=== PATIENT | female | born 1985 ===

== ENCOUNTER 2017-01-02 14:58 | Emergency (ER) | payer MEDICAID, OTHER ==
[2017-01-02 15:06] VITALS: BP 120/73; PULSE 82; RESP 18; TEMP 98.3; O2SAT 100
--- NOTE | 2017-01-02 15:31 | ED PDOC ---
HPI: General Adult Time Seen by Provider: 01/02/17 15:14 Chief Complaint (Nursing): Chest Pain Chief Complaint (Provider): chest pain History Per: Patient History/Exam Limitations: no limitations Additional Complaint(s): 31yo female comes to the ED complaining of chest pain that started yesterday. States pain was sharp, her chest felt "lumpy" on the left. She had shortness of breath earlier today. States she occasionally gets headaches. No cough, fever, leg swelling, dizziness, diarrhea. She reports stress. Denies palpitations. States her father has a heart condition. Denies tobacco use. States she gets a rash around her lips when she is given morphine PMD: none Past Medical History Reviewed: Historical Data, Nursing Documentation, Vital Signs Vital Signs: Last Vital Signs Temp 98.3 F 01/02/17 15:02 Pulse 82 01/02/17 15:02 Resp 18 01/02/17 15:02 BP 120/73 01/02/17 15:02 Pulse Ox 100 01/02/17 16:08 - Medical History PMH: Anxiety, Asthma, Hypercholesterolemia, Migraine - Surgical History Surgical History: No Surg Hx - Family History Family History: States: Other (Father has a "heart condition") - Social History Current smoker - smoking cessation education provided: No - Immunization History Hx Tetanus Toxoid Vaccination: No Hx Influenza Vaccination: No Hx Pneumococcal Vaccination: No - Home Medications Home Medications: Ambulatory Orders Medication Instructions Recorded Fish Oil PO DAILY 08/16/16 Sulfamethoxazole/Trimethoprim 1 tab PO BID #14 tab 08/16/16 [Bactrim DS 800 mg-160 mg] Ventolin HFA 90 mcg/actuation (8 g) PRN PRN 08/16/16 - Allergies Allergies/Adverse Reactions: Allergies Allergy/AdvReac Type Severity Reaction Status Date / Time morphine Allergy Verified 08/16/16 13:42 Review of Systems ROS Statement: Except As Marked, All Systems Reviewed And Found Negative Constitutional: Negative for: Fever Cardiovascular: Positive for: Chest Pain Respiratory: Positive for: Shortness of Breath. Negative for: Cough Gastrointestinal: Negative for: Diarrhea Neurological: Positive for: Headache. Negative for: Dizziness Physical Exam - Reviewed Nursing Documentation Reviewed: Yes Vital Signs Reviewed: Yes - Physical Exam Appears: Positive for: Well, Non-toxic, No Acute Distress Head Exam: Positive for: ATRAUMATIC, NORMAL INSPECTION, NORMOCEPHALIC Skin: Positive for: Warm, Dry Eye Exam: Positive for: EOMI, PERRL Cardiovascular/Chest: Positive for: Regular Rate, Rhythm Respiratory: Positive for: Normal Breath Sounds. Negative for: Rales, Rhonchi, Wheezing Gastrointestinal/Abdominal: Positive for: Soft. Negative for: Tenderness Extremity: Positive for: Normal ROM - Laboratory Results Result Diagrams: 01/02/17 16:19 01/02/17 16:19 - ECG ECG: Positive for: Interpreted By Me ECG Rhythm: Positive for: Normal QRS, Normal ST Segment, Sinus Rhythm. Negative for: ST/T Changes O2 Sat by Pulse Oximetry: 100 (RA) Pulse Ox Interpretation: Normal - Radiology X-Ray: Read By Radiologist X-Ray Interpretation: No Acute Disease Medical Decision Making Medical Decision Makin EKG, CXR, labs ordered. HEART score 0 Wells 0 EKG normal, labs unremarkable, DDIMER wnl, trop neg. Stable for DC with followup PMD outpatient. Return to ER for any return of symptoms. Disposition - Clinical Impression Clinical Impression: Chest pain - Patient ED Disposition Is Patient to be Admitted: No Counseled Patient/Family Regarding: Studies Performed, Diagnosis, Need For Followup - Disposition Referrals: [facility] [Outside] Disposition: Routine/Home Disposition Time: 18:45 Condition: STABLE Instructions: Chest Pain (ED) Additional Comments - Additional Comments Additional Comments: Scribe Attestation: Documented by Obed Colón acting as a scribe for Brijesh Downs DO. Provider Scribe Attestation: All medical record entries made by the Scribe were at my direction and personally dictated by me. I have reviewed the chart and agree that the record accurately reflects my personal performance of the history, physical exam, medical decision making, and the department course for this patient. I have also personally directed, reviewed, and agree with the discharge instructions and disposition.
[2017-01-02 17:14] LABS: BASO # 0.1 K/uL (0.0-0.2); BASO % 0.6 % (0.0-2.0); EOS # 0.1 K/uL (0.0-0.7); EOS % 1.6 % (0.0-4.0); LYMPH # 2.6 K/uL (1.0-4.3); LYMPH % 28.3 % (20.0-40.0); MEAN CORPUSCULAR HEMOGLOBIN 31.9 pg (27.0-31.0); MEAN CORPUSCULAR HGB CONC 33.9 g/dL (33.0-37.0); MEAN PLATELET VOLUME 8.4 fl (7.2-11.7); MONO # 0.6 K/uL (0.0-0.8); MONO % 6.3 % (0.0-10.0); NEUT # 5.8 K/uL (1.8-7.0); NEUT % 63.2 % (50.0-75.0); WHITE BLOOD COUNT 9.2 K/uL (4.8-10.8)
[2017-01-02 17:21] LABS: ALB/GLOB RATIO 1.1 (1.0-2.1); ALKALINE PHOSPHATASE 72 U/L (38-126); ALT/SGPT 25 U/L (9-52); AST/SGOT 34 U/L (14-36); BILIRUBIN,TOTAL 0.8 mg/dl (0.2-1.3); BLOOD UREA NITROGEN 13 mg/dl (7-17); CALCIUM 9.3 mg/dL (8.4-10.2); CARBON DIOXIDE 25 mmol/L (22-30); CHLORIDE 104 mmol/L (98-107); GFR AFRICAN-AMERICAN > 60; GLUCOSE,RANDOM 91 mg/dL (65-105); POTASSIUM 4.8 MMOL/L (3.6-5.0); SODIUM 138 mmol/l (132-148); TOTAL PROTEIN 8.1 G/DL (6.3-8.2)
--- NOTE | 2017-01-02 18:13 | RAD ---
HISTORY: CP SOB COMPARISON: None available. TECHNIQUE: Chest, one view. FINDINGS: Examination limited by habitus. LUNGS: No focal consolidation. Please note that chest x-ray has limited sensitivity for the detection of pulmonary masses. PLEURA: No significant pleural effusion identified. No definite pneumothorax . CARDIOVASCULAR: The cardiomediastinal silhouette appears within normal limits of size. OSSEOUS STRUCTURES: No acute osseous abnormality identified. VISUALIZED UPPER ABDOMEN: Unremarkable. OTHER FINDINGS: None. IMPRESSION: No focal consolidation, significant pleural effusion, or definite pneumothorax identified.
[2017-01-02 18:20] LABS: PARTIAL THROMBOPLASTIN TIME 25.4 SECONDS (23.3-32.5)
--- NOTE | 2017-01-02 19:54 | CARD ---
APPROVED REPORT EKG Measurement Heart [id number] <Conclusion> Normal sinus rhythm Normal ECG
== END 2017-01-02 20:00 | disposition home or self-care (01) ==
LOC: H.ER 14:58
DX: R07.9 Chest pain, unspecified (principal)